=== PATIENT | female | born 1940 | race Caucasian/White ===

== ENCOUNTER → 2018-06-04 14:34 | Outpatient (CLI) | payer MEDICARE, SELFPAY ==
[2018-06-04 15:57] LABS: Erythrocyte Sedimentation Rate 9 mm/hr (0-30)
[2018-06-04 16:16] LABS: ALB/GLOB Ratio 1.1 RATIO (0.9-2.4); AST(SGOT) 14 U/L (15-37); Alanine Aminotransfer ALT/SGPT 17 U/L (13-56); Albumin, Serum 3.7 g/dL (3.2-5.0); Alkaline Phosphatase 125 U/L (45-117); Anion Gap 9 (5-15); BUN 8 mg/dL (7-18); BUN/Creat Ratio 12.4 RATIO (10-20); Calcium,Total 8.7 mg/dL (8.5-10.1); Chloride 97 mmol/L (98-107); Cholesterol 205 mg/dL (200); Creatinine, Serum 0.64 mg/dL (0.55-1.02); EST Glomerular Filtration Rate 95 mL/min (>60); Est Glom Filt Rate - Afr Amer 115 mL/min (>60); Globulin 3.3 g/dL (2.2-4.2); Glucose 88 mg/dL (74-106); High Density Lipoprotein 86 mg/dL; Potassium 3.2 mmol/L (3.5-5.1); Sodium Level 131 mmol/L (136-145); Triglycerides 112 mg/dL; Very Low Density Lipoprotein 22 mg/dL (5-40)
[2018-06-05 09:00] LABS: Vitamin B12 448 pg/mL (211-911); Vitamin D,25 Hydroxy 27.6 ng/mL (29.95-100.01)
== END ==
PROVIDERS: Family Provider Family Medicine; PCP Family Medicine; Visit Provider Family Medicine
DX: G40.909 Epilepsy, unspecified, not intractable, without status epilepticus (principal); E78.00 Pure hypercholesterolemia, unspecified; M81.0 Age-related osteoporosis without current pathological fracture; F03.90 Unspecified dementia, unspecified severity, without behavioral disturbance, psychotic disturbance, mood disturbance, and anxiety
CPT/HCPCS: 36415; 80053; 80061; 80184; 82306; 82607; 84443; 85652

== ENCOUNTER → 2018-06-19 10:16 | Outpatient (CLI) | payer MEDICARE, SELFPAY ==
[2018-06-19 14:32] LABS: Osmolality, Serum 279 mOsm/KG (280-301)
[2018-06-19 15:02] LABS: Urine Sodium 13 mmol/L (Not Establ.)
[2018-06-19 15:18] LABS: Osmolality, Urine 251 mOsm/KG
== END ==
PROVIDERS: Family Provider Family Medicine; PCP Family Medicine; Visit Provider Family Medicine
DX: E87.1 Hypo-osmolality and hyponatremia (principal)
CPT/HCPCS: 36415; 83930; 83935; 84300

== ENCOUNTER → 2018-06-24 14:35 | Outpatient (CLI) | payer MEDICARE, SELFPAY ==
--- NOTE | 2018-06-24 14:39 | CT_ITS ---
STUDY: CT BRAIN WITHOUT CONTRAST REASON FOR EXAM: Female, 77 years old. Dementia nonverbal since Sunday RADIATION DOSAGE (If Supplied By Facility): CTDIvol = ( 44.99 ) mGy, DLP = ( 745.49 ) mGycm TECHNIQUE: Transaxial CT imaging of the brain was performed without administration of intravenous contrast material. Individualized dose optimization techniques were used for this CT. COMPARISON: None. FINDINGS: Normal soft tissue structures. Normal calvarium. There is mild cerebral atrophy with widening of the extra-axial spaces and ventricular dilatation. There are areas of decreased attenuation within the white matter tracts of the supratentorial brain, consistent with microvascular disease changes. There is low-attenuation within the left side basal ganglia both within the israel of the left internal capsule as well as within the left thalamic region. Normal brainstem. There is mild cerebellar atrophy. There is no intracranial hemorrhage. There are no findings of an acute ischemic infarction. There is opacification of the left maxillary sinus. There is calcification of the bilateral cavernous carotid arteries. CT/Brain/Head without Contrast IMPRESSION: Atrophy. There are confluent deep white matter chronic ischemic change. 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 Recommend consideration of follow-up MRI is appropriate. Atherosclerotic disease of the carotid arteries. Severe left maxillary sinusitis. Electronically Signed: Cindy Ramirez MD at 15:58 EDT Tel , Service support ,
== END ==
PROVIDERS: Family Provider Family Medicine; PCP Family Medicine; Visit Provider Family Medicine
DX: F03.90 Unspecified dementia, unspecified severity, without behavioral disturbance, psychotic disturbance, mood disturbance, and anxiety (principal)
CPT/HCPCS: 70450

== ENCOUNTER 2018-06-27 10:38 | Emergency (ER) | payer MEDICARE, SELFPAY ==
[2018-06-27 10:39] VITALS: BP 120/76; PULSE 87; RESP 17; TEMP 36.1; O2SAT 98; BMI 21.9
--- NOTE | 2018-06-27 11:05 | EKG12_ITS ---
Test Reason : NEURO Blood Pressure : / mmHG Vent. Rate : 079 BPM Atrial Rate : 079 BPM P-R Int : 154 ms QRS Dur : 076 ms QT Int : 402 ms P-R-T Axes : 029 -30 035 degrees QTc Int : 460 ms Normal sinus rhythm Left axis deviation Moderate voltage criteria for LVH, may be normal variant Abnormal ECG Confirmed by CARLOS DENSON, VIKKI ([id number]), film and video editor TALIB HOLDEN ([id number]) on 07/01/2018 3:03:01 PM Referred By: Emerson Banuelos Confirmed By:VIKKI GONZALEZ MD
--- NOTE | 2018-06-27 11:05 | CT_ITS ---
STUDY: CT BRAIN WITHOUT CONTRAST REASON FOR EXAM: Female, 77 years old. Confusion. RADIATION DOSAGE (If Supplied By Facility): CTDIvol = ( 44.99 ) mGy, DLP = ( 745.49 ) mGycm TECHNIQUE: Transaxial CT imaging of the brain was performed without administration of intravenous contrast material. Individualized dose optimization techniques were used for this CT. COMPARISON: Comparison is made with prior study dated June 24, 2018. FINDINGS: Normal soft tissue structures. Normal calvarium. There is mild cerebral atrophy with widening of the extra-axial spaces and ventricular dilatation. There are areas of decreased attenuation within the white matter tracts of the supratentorial brain, consistent with microvascular disease changes. Stable 1.1 cm x 0.8 cm hypolucency in the left basal ganglion. Stable 1 cm lucency in the left thalamus. Normal brainstem. There is mild cerebellar atrophy. There is no intracranial hemorrhage. There are no findings of an acute ischemic infarction. Atherosclerotic calcification of the cavernous portions of the internal carotid arteries bilaterally. Opacification of the left maxillary sinus. Mucosal thickening of the left ethmoid sinus. CT/Brain/Head without Contrast IMPRESSION: Chronic involutional changes of the brain. Stable hypodensity in the left basal ganglion and left thalamus. Electronically Signed: Lul Tejada MD at 12:17 EDT Tel [phone], Service support ,
--- NOTE | 2018-06-27 11:05 | RAD_ITS ---
STUDY: X-RAY CHEST REASON FOR EXAM: Female, 77 years old. Possible CVA. TECHNIQUE: Single AP portable view of the chest. COMPARISON: None. FINDINGS: EKG electrodes are seen. Hyperinflation. Scattered calcified granulomas. No acute abnormality is seen. There is no demonstrated pleural abnormality. Normal size heart. Normal mediastinum and brady. Normal visualized pulmonary arteries. There is atherosclerotic calcification of the aortic arch with tortuosity. There are diffuse degenerative changes of the visualized thoracic spine. There is degenerative osteoarthritis of the bilateral shoulders. There is no demonstrated abnormality of the visualized soft tissue structures of the upper abdomen. RAD/Chest 1 View IMPRESSION: Hyperinflation. Scattered calcified granulomas. Electronically Signed: Lul Tejada MD at 11:24 EDT Tel [phone], Service support ,
[2018-06-27 11:09] VITALS: BP 131/80; PULSE 83; RESP 18; O2SAT 98
[2018-06-27 11:34] LABS: Absolute Lymphocyte Count 0.96 X10^3/ul (0.83-4.51); Absolute Neutrophil Count 6.3 X10^3/uL (2.0-7.7); Basophil# 0.01 X10^3/uL; Basophil% 0.1 % (0-1); Eosinophil# 0.09 X10^3/uL; Eosinophils% 1.1 % (0-5); Hematocrit 42.2 % (37-47); Hemoglobin 13.9 g/dl (12.0-15.0); Lymphocyte # 0.96 X10^3/ul (4.0); Lymphocyte % 12.2 % (19-41); Mean Corp Hgb Conc 32.9 g/gl (32-36); Mean Corpuscular Hgb 30.3 pg (27.0-32.0); Mean Corpuscular Volume 92.1 fL (81-99); Mean Platelet Vol. 9.2 fl (6.2-12.0); Monocyte# 0.52 X10^3/uL; Monocyte% 6.6 % (0-10); Neutrophil % 79.9 % (47-70); Platelet Count 261 K/mm3 (150-450); RBC Distribution Width CV 13.5 % (11.6-14.6); RBC Distribution Width SD 45.3 fl (35.1-43.9); Red Blood Count 4.58 M/mm3 (4.2-5.4); White Blood Count 7.9 K/mm3 (4.4-11.0)
[2018-06-27 11:36] LABS: POSITIVE COUNT NO; POSITIVE DIFFERENTIAL NO; POSITIVE MORPHOLOGY NO
[2018-06-27 11:45] LABS: Prothrombin Time (Protime)PT. 13.1 SECONDS (11.7-14.9)
[2018-06-27 11:46] LABS: Partial Thromboplast Time 29.2 Seconds (24.1-36.2)
[2018-06-27 11:53] LABS: Anion Gap 11 (5-15); BUN 9 mg/dL (7-18); BUN/Creat Ratio 12.9 RATIO (10-20); Calcium,Total 8.8 mg/dL (8.5-10.1); Chloride 102 mmol/L (98-107); EST Glomerular Filtration Rate 87 mL/min (>60); Est Glom Filt Rate - Afr Amer 105 mL/min (>60); Estimated Creatinine Clearance 47.27 ml/min; Glucose 104 mg/dL (74-106); Potassium 3.8 mmol/L (3.5-5.1); Sodium Level 140 mmol/L (136-145)
--- NOTE | 2018-06-27 12:02 | ED.VISSUMM ---
- ER Visit Summary Date of Service: 06/27/18 Chief Complaint: Possible stroke History of Present Illness: The patient is a 77 F who presents with difficulty speaking for the past 5 days. states he went to [employer] on Sunday and when he came home the patient was nonverbal. Patient was only nodding her head or giving gestures as answers to his questions. Later the patient began giving one-word answers. Patient has a history of Parkinson's disease and dementia. states that the patient sits on the front porch and stares at the calendar. also states the patient has been drinking a lot of water recently. Patient had an outpatient CT scan done Sunday which did not show any acute abnormality. Physical Examination: Vital signs are stable. Patient is afebrile. Patient is in no acute distress. Cranial nerves II through XII are intact. Strength is 5/5 bilateral in the upper and lower extremities. There are no sensory deficits noted. Heart was regular rate and rhythm. Lungs are clear and equal bilateral. There is good respiratory effort noted. Abdomen is soft. Bowel sounds are normal. There is no apparent tenderness. The remaining physical exam is within normal limits. Test Results: EKG showed normal sinus rhythm with a rate of 79. There are no acute ST or T-wave changes. CBC and metabolic profile were within normal limits. Troponin was normal. CT scan of the brain showed chronic changes but no acute infarct or bleed. Chest x-ray shows hyperinflation but no acute process. Urinalysis shows evidence of a urinary tract infection. Emergency Department Course and Treatment: Patient was given a dose of Bactrim here. Patient was given a prescription for Bactrim. Case was discussed with her primary care physician who agrees with the treatment and will follow-up with the patient in the office next week. Family understands and is agreeable with the plan. All questions were answered. Disposition: Discharge home Impression: 1. Urinary tract infection 2. Dementia 3. History of Parkinson's disease This note was generated with [employer] dictation software. It may contain incorrect words, spelling, and punctuation that were not noted in review of the chart prior to signing ED Disposition - Plan for ED Patient: Disposition: Home or Assisted Living Chief Complaint: Neuro S/Sx Diagnosis: Urinary tract infection Instructions: ED UTI Cystitis Female Prescriptions: Smz/Tmp Ds [Bactrim Ds] 1 tab PO BID #6 tab Referrals: Emerson Banuelos MD [Primary Care Provider] -
--- NOTE | 2018-06-27 12:02 | CM.ED ---
Case management referred for advance directives planning. Reviewed advance directives and answered questions for patient and family. All present state understanding. Two copies of advance directives provided: one for patient and one for her spouse. I informed patient and family to let staff know if they have any questions or need witness signatures for documents. Patient is documented to be alert and oriented at this time. She states no questions at this time.
--- NOTE | 2018-06-27 12:05 | ED.DCSUM_ITS ---
- ER Visit Summary Date of Service: 06/27/18 Chief Complaint: Possible stroke History of Present Illness: The patient is a 77 F who presents with difficulty speaking for the past 5 days. states he went to [employer] on Sunday and when he came home the patient was nonverbal. Patient was only nodding her head or giving gestures as answers to his questions. Later the patient began giving one-word answers. Patient has a history of Parkinson's disease and dementia. states that the patient sits on the front porch and stares at the calendar. also states the patient has been drinking a lot of water recently. Patient had an outpatient CT scan done Sunday which did not show any acute abnormality. Physical Examination: Vital signs are stable. Patient is afebrile. Patient is in no acute distress. Cranial nerves II through XII are intact. Strength is 5/ 5 bilateral in the upper and lower extremities. There are no sensory deficits noted. Heart was regular rate and rhythm. Lungs are clear and equal bilateral. There is good respiratory effort noted. Abdomen is soft. Bowel sounds are normal. There is no apparent tenderness. The remaining physical exam is within normal limits. Test Results: EKG showed normal sinus rhythm with a rate of 79. There are no acute ST or T-wave changes. CBC and metabolic profile were within normal limits. Troponin was normal. CT scan of the brain showed chronic changes but no acute infarct or bleed. Chest x-ray shows hyperinflation but no acute process. Urinalysis shows evidence of a urinary tract infection. Emergency Department Course and Treatment: Patient was given a dose of Bactrim here. Patient was given a prescription for Bactrim. Case was discussed with her primary care physician who agrees with the treatment and will follow-up with the patient in the office next week. Family understands and is agreeable with the plan. All questions were answered. Disposition: Discharge home Impression: 1. Urinary tract infection 2. Dementia 3. History of Parkinson's disease This note was generated with [employer] dictation software. It may contain incorrect words, spelling, and punctuation that were not noted in review of the chart prior to signing ED Disposition - Plan for ED Patient: Disposition: Home or Assisted Living Chief Complaint: Neuro S/Sx Diagnosis: Urinary tract infection Instructions: ED UTI Cystitis Female Prescriptions: Smz/Tmp Ds [Bactrim Ds] 1 tab PO BID #6 tab Referrals: Emerson Banuelos MD [Primary Care Provider] -
[2018-06-27 13:09] VITALS: O2SAT 98
[2018-06-27 13:10] VITALS: BP 143/79; PULSE 77; RESP 16; O2SAT 98
[2018-06-27 14:04] LABS: Mucous, Urine 0 SEEN /hpf (<or=2+); Red Blood Cells-Urine 0 SEEN /hpf (0-5)
[2018-06-27 14:22] LABS: Color, Urine Yellow (Yellow); Glucose, Dipstick Normal (Normal); Ketone-Dipstick Negative (Negative); Leukocyte Esterase-Dipstick 500 /ul (Negative); Nitrite-Dipstick Positive (Negative); Occult Blood-Urine 25 /ul (Negative); Protein-Dipstick Negative (Negative); Urine Bilirubin Dipstick Negative (Negative); Urine Clarity Sl. Cloudy (Clear); Urine Urobilinogen Normal (Normal)
[2018-06-27 14:50] LABS: Bacteria 3+ /hpf (None Seen); White Blood Cells 25-50 SEEN /hpf (0-5)
--- NOTE | 2018-06-27 14:50 | CM.ED ---
Patient's family requested case management for questions and as witnesses for advance directives. neighborhood worker, Cecilio Moreno, accompanied me. Family's questions answered at this time. Patient is alert and oriented to self only at this time. She was unable to tell me the month or where she was. Patient's family states this is normal for her after she's been awake a while. I explained that we are unable to witness her advance directives at this time. Patient's family states understanding. They also state understanding on how to complete these from home, if needed. Patient's spouse did complete his own advance directives. These were scanned into his electronic chart.
[2018-06-27 14:51] LABS: Squamous Epithelial Cells - UA 0-5 SEEN /hpf (5-10)
[2018-06-27 15:24] VITALS: BP 123/65; PULSE 82; RESP 16; O2SAT 98
[2018-06-27 15:25] VITALS: BP 123/85; PULSE 81; RESP 16; O2SAT 98
[2018-06-27] MEDS: Smz/Tmp Ds Tablet 1 TABLET PO (15:26)
== END 2018-06-27 15:37 | disposition home or self-care (01) ==
PROVIDERS: Emergency Provider Emergency Medicine; Family Provider Family Medicine; PCP Family Medicine
DX: N39.0 Urinary tract infection, site not specified (principal); R32 Unspecified urinary incontinence; G20 Parkinson's disease; F02.80 Dementia in other diseases classified elsewhere, unspecified severity, without behavioral disturbance, psychotic disturbance, mood disturbance, and anxiety; R56.9 Unspecified convulsions; Z79.899 Other long term (current) drug therapy
CPT/HCPCS: 70450; 71045; 80048; 81001; 84484; 85025; 85610; 85730; 93005; 99285; A4216

== ENCOUNTER → 2018-07-18 12:18 | Outpatient (CLI) | payer MEDICARE, SELFPAY ==
--- NOTE | 2018-07-18 12:33 | MRI_ITS ---
STUDY: MRI BRAIN WITH AND WITHOUT CONTRAST REASON FOR EXAM: Female, 78 years old. CVA TECHNIQUE: Standardized multiplanar fat and water weighted pulse sequences were obtained. 6 ml of Gadavist contrast material was administered intravenously for the contrast portion of the examination. COMPARISON: CT 06/27/2018 FINDINGS: Normal size of the ventricles and extra-axial spaces for the patient's age. There are multiple white matter hyperintensities, distributed throughout the deep white matter tracts of the cerebral hemispheres, consistent with moderate chronic white matter ischemic changes. Subacute infarct in the left basal ganglia. Punctate acute infarct in the right periatrial white matter. Remote infarcts in the bilateral thalami. There is no extra-axial fluid accumulation. Normal flow voids within the major intracranial circulation suggesting patency by spin echo criteria. Normal venous enhancement. There is no enhancing intra-axial or extra-axial abnormality. Normal sella turcica, pituitary gland, infundibular stalk, optic chiasm and hypothalamus. Normal tectal plate and pineal gland. Microangiopathic changes in the guillermo. Normal cerebellum. Normal basal cisterns. Normal bilateral temporal bones. Normal bilateral internal auditory canals. Bilateral lens replacements. Left maxillary sinus disease. Normal calvarium and skull base. Normal visualized soft tissue structures. Normal visualized upper cervical spine. MRI/Brain W/WO Contrast IMPRESSION: Subacute infarct in the left basal ganglia. Punctate acute infarct in the right periatrial white matter. Remote infarcts in the bilateral thalami. No evidence of acute intracranial hemorrhage. Electronically Signed: Kev Hahn MD at 2:23 EDT Tel , Service support ,
== END ==
PROVIDERS: Family Provider Family Medicine; PCP Family Medicine; Referring Provider Family Medicine; Visit Provider Family Medicine
DX: Z86.73 Personal history of transient ischemic attack (TIA), and cerebral infarction without residual deficits (principal)
CPT/HCPCS: 70553; A9585

== ENCOUNTER → 2018-07-23 17:58 | Outpatient (CLI) | payer MEDICARE, SELFPAY | PROVIDERS: Family Provider Family Medicine; PCP Family Medicine; Referring Provider Family Medicine; Visit Provider Family Medicine | DX: R32 Unspecified urinary incontinence (principal) | CPT/HCPCS: 87086; 87088; 87186 ==

== ENCOUNTER → 2018-07-24 12:36 | Outpatient (CLI) | payer MEDICARE, SELFPAY ==
--- NOTE | 2018-07-24 12:42 | ECHOD_ITS ---
Reason For Study: CVA Procedure This was a 2D Doppler, Color Flow transthoracic echocardiogram. The study was technically difficult. Exam performed in department. Left Ventricle Normal size and thickness. The estimated ejection fraction is 65 %. Stage 1 diastolic dysfunction. No regional wall motion abnormalities noted. Right Ventricle Normal size and thickness. Normal systolic function. Atria Normal left atrium. Normal right atrium. Normal atrial septum. Mitral Valve The mitral valve is structurally normal. No prolapse or stenosis seen. Tricuspid Valve Normal tricuspid valve. Trivial tricuspid valve insufficiency. Right ventricular systolic pressure estimated to be 29 mmHg. Aortic Valve Trisinus/trileaflet aortic valve. Moderate diffuse aortic valve thickening. Mild aortic stenosis. Trivial aortic valve insufficiency. Pulmonic Valve Normal pulmonic valve. Trivial pulmonic valve insufficiency. Great Vessels Normal aortic root. Pericardium/Pleural No pericardial effusion. Medication 22 gauge I.V. with prn adaptor inserted into right arm. Performed a rapid injection of agitated mix of 9 cc saline and 1cc air to assess for atrial septal defect. MMode/2D Measurements & Calculations LVIDd: 3.9 cm IVSd: 1.1 cm Ao root diam: 3.7 cm LVIDs: 2.4 cm LVPWd: 1.0 cm RVDd: 2.7 cm FS: 37.7 % LAV(MOD-bp): 39.2 ml LA A4 area: 15.1 cm2 RA A4 area: 8.5 cm2 LAV(MOD-sp2): 43.5 ml LAV(MOD-sp4): 35.4 ml Doppler Measurements & Calculations MV E max jose: 45.9 cm/sec Lat Peak E' Jose: 8.2 cm/sec Med Peak E' Jose: 4.9 cm/sec MV A max jose: 102.6 cm/sec E/E' lat: 5.6 E/E' med: 9.3 MV E/A: 0.45 Ao V2 max: 179.7 cm/sec AI max jose: 445.4 cm/sec LV V1 max: 156.5 cm/sec Ao max P.3 mmHg AI max P.4 mmHg LV V1 max P.8 mmHg Ao V2 mean: 129.3 cm/sec AI dec slope: 224.7 cm/sec2 LV V1 mean P.7 mmHg Ao mean P.2 mmHg AI P1/2t: 580.6 msec LV V1 mean: 114.8 cm/sec Ao V2 VTI: 29.1 cm LV V1 VTI: 25.2 cm PA V2 max: 92.5 cm/sec TR max jose: 235.0 cm/sec TR max P.1 mmHg Interpretation Summary The estimated ejection fraction is 65 %. Stage 1 diastolic dysfunction. Trivial tricuspid valve insufficiency. Right ventricular systolic pressure estimated to be 29 mmHg. Mild aortic stenosis. Trivial aortic valve insufficiency. There is no comparison study available. Ordering Physician: Luiz Banuelos Referring Physician: Luiz Banuelos Performed By: Claribel Slade, SALVATORE, RVT
--- NOTE | 2018-07-24 12:42 | CDU_ITS ---
Reason For Study: CVA Rt. Velocities/BP Lt. Velocities/BP Prox CCA 47/9 cm/sec. Prox CCA 46/7 cm/sec. Mid CCA 45/9 cm/sec. Mid CCA 52/9 cm/sec. Dist CCA 42/9 cm/sec. Dist CCA 44/8 cm/sec. Prox ICA 30/5 cm/sec. Prox ICA 45/9 cm/sec. Mid ICA 39/7 cm/sec. Mid ICA 35/11 cm/sec. Dist ICA 47/8 cm/sec. Dist ICA 47/11 cm/sec. Rt. ICA/CCA = 1.05. Lt. ICA/CCA = .9. Prox ECA 86/7 cm/sec. Prox ECA 71/6 cm/sec. Rt. Vert. 42/7 cm/sec. Lt. Vert. 35/7 cm/sec. Right Extracranial There is heterogeneous, irregular atherosclerotic plaque noted in the right common carotid artery. There is heterogeneous, irregular atherosclerotic plaque noted in the right internal carotid artery. There is heterogeneous, irregular atherosclerotic plaque noted in the right external carotid artery. Antegrade flow is noted in the right vertebral artery. There is heterogeneous, irregular atherosclerotic plaque noted in the right bulb. Left Extracranial There is homogeneous, smooth atherosclerotic plaque noted in the left common carotid artery. There is heterogeneous, irregular atherosclerotic plaque noted in the left internal carotid artery. There is heterogeneous, irregular atherosclerotic plaque noted in the left external carotid artery. Antegrade flow is noted in the left vertebral artery. There is heterogeneous, irregular atherosclerotic plaque noted in the left bulb. Procedure Carotid Duplex 22360. Exam performed in department. Interpretation Summary Mild (<50%) stenosis right extracranial internal carotid. Mild (<50%) stenosis left extracranial internal carotid. Flow within the vertebral arteries is antegrade bilaterally. Heterogeneous, irregular atherosclerotic plaque is noted in the carotid bulbs bilaterally, which does not appear to be hemodynamically significant. Ordering Physician: Luiz Banuelos Referring Physician: uLiz Banuelos Performed By: Juanita Snow, SALVATORE, RVT
== END ==
PROVIDERS: Family Provider Family Medicine; PCP Family Medicine; Referring Provider Family Medicine; Visit Provider Family Medicine
DX: Z86.73 Personal history of transient ischemic attack (TIA), and cerebral infarction without residual deficits (principal)
CPT/HCPCS: 93306; 93880; A4216

== ENCOUNTER → 2018-07-30 11:33 | Outpatient (CLI) | payer MEDICARE, SELFPAY ==
[2018-07-30 14:12] LABS: Anion Gap 9 (5-15); BUN 9 mg/dL (7-18); BUN/Creat Ratio 14.2 RATIO (10-20); Calcium,Total 8.7 mg/dL (8.5-10.1); Chloride 103 mmol/L (98-107); Creatinine, Serum 0.64 mg/dL (0.55-1.02); EST Glomerular Filtration Rate 97 mL/min (>60); Est Glom Filt Rate - Afr Amer 117 mL/min (>60); Glucose 99 mg/dL (74-106); Potassium 3.8 mmol/L (3.5-5.1); Sodium Level 138 mmol/L (136-145)
== END ==
PROVIDERS: Family Provider Family Medicine; PCP Family Medicine; Visit Provider Family Medicine
DX: E87.1 Hypo-osmolality and hyponatremia (principal)
CPT/HCPCS: 36415; 80048

== ENCOUNTER → 2018-12-04 10:22 | Outpatient (CLI) | payer MEDICARE, SELFPAY ==
[2018-12-04 10:27] LABS: Mucous, Urine 0 SEEN /hpf (<or=2+); Red Blood Cells-Urine 0 SEEN /hpf (0-5)
[2018-12-04 12:15] LABS: Color, Urine Yellow (Yellow); Glucose, Dipstick Normal (Normal); Ketone-Dipstick 5 mg/dl (Negative); Leukocyte Esterase-Dipstick 500 /ul (Negative); Nitrite-Dipstick Positive (Negative); Occult Blood-Urine 50 /ul (Negative); Protein-Dipstick 30 mg/dl (Negative); Specific Gravity, Urine 1.025 (1.002-1.030); Urine Bilirubin Dipstick Negative (Negative); Urine Clarity Cloudy (Clear); Urine Urobilinogen Normal (Normal)
[2018-12-04 12:30] LABS: White Blood Cells >100 SEEN /hpf (0-5)
[2018-12-04 12:32] LABS: Bacteria 3+ /hpf (None Seen)
[2018-12-04 12:33] LABS: Calcium Oxalate Crystals Ur RARE /hpf (<or=2+)
[2018-12-04 12:37] LABS: Squamous Epithelial Cells - UA 0-5 SEEN /hpf (5-10); Transitional Epithelial - Ur 0-5 SEEN /hpf (0-5)
== END ==
LOC: MFPLAB 10:22 → LABSPEC 10:26
PROVIDERS: Family Provider Family Medicine; PCP Family Medicine; Visit Provider Family Medicine
DX: R35.0 Frequency of micturition (principal)
CPT/HCPCS: 81001; 87086; 87088; 87186

== ENCOUNTER → 2019-03-06 11:47 | Outpatient (CLI) | payer MEDICARE, SELFPAY ==
[2019-03-06 14:10] LABS: Absolute Lymphocyte Count 1.03 X10^3/ul (0.83-4.51); Absolute Neutrophil Count 5.8 X10^3/uL (2.0-7.7); Basophil# 0.02 X10^3/uL; Basophil% 0.3 % (0-1); Eosinophil# 0.05 X10^3/uL; Eosinophils% 0.7 % (0-5); Hemoglobin 14.5 g/dl (12.0-15.0); Lymphocyte # 1.03 X10^3/ul (4.0); Lymphocyte % 13.8 % (19-41); Mean Corp Hgb Conc 33.7 g/gl (32-36); Mean Corpuscular Volume 92.1 fL (81-99); Mean Platelet Vol. 9.9 fl (6.2-12.0); Monocyte# 0.57 X10^3/uL; Monocyte% 7.6 % (0-10); Neutrophil # 5.79 X10^3/uL (2.7-7.7); Neutrophil % 77.3 % (47-70); Platelet Count 288 K/mm3 (150-450); RBC Distribution Width CV 14.4 % (11.6-14.6); RBC Distribution Width SD 47.8 fl (35.1-43.9); Red Blood Count 4.67 M/mm3 (4.2-5.4); White Blood Count 7.5 K/mm3 (4.4-11.0)
[2019-03-06 14:11] LABS: POSITIVE COUNT NO; POSITIVE DIFFERENTIAL NO; POSITIVE MORPHOLOGY NO
[2019-03-06 14:31] LABS: ALB/GLOB Ratio 1.4 RATIO (0.9-2.4); AST(SGOT) 5 U/L (15-37); Alanine Aminotransfer ALT/SGPT 7 U/L (13-56); Albumin, Serum 3.9 g/dL (3.2-5.0); Alkaline Phosphatase 120 U/L (45-117); Anion Gap 8 (5-15); BUN 9 mg/dL (7-18); BUN/Creat Ratio 15.6 RATIO (10-20); Calcium,Total 9.2 mg/dL (8.5-10.1); Chloride 106 mmol/L (98-107); Creatinine, Serum 0.58 mg/dL (0.55-1.02); EST Glomerular Filtration Rate 108 mL/min (>60); Est Glom Filt Rate - Afr Amer 131 mL/min (>60); Globulin 2.7 g/dL (2.2-4.2); Glucose 97 mg/dL (74-106); Potassium 3.9 mmol/L (3.5-5.1); Protein, Total 6.6 g/dL (6.4-8.2); Sodium Level 138 mmol/L (136-145); Thyroid Stim Hormone (TSH) 1.59 uIU/mL (0.358-3.74)
== END ==
PROVIDERS: Family Provider Family Medicine; PCP Family Medicine; Referring Provider Family Medicine; Visit Provider Family Medicine
DX: R53.1 Weakness (principal)
CPT/HCPCS: 36415; 80053; 84443; 85025

== ENCOUNTER 2019-06-27 14:31 | Observation (INO) | payer MEDICARE, SELFPAY ==
[2019-06-27 14:32] VITALS: BP 100/66; PULSE 69; RESP 17; TEMP 36.7; O2SAT 97; BMI 24.5
--- NOTE | 2019-06-27 15:34 | EKG12_ITS ---
Test Reason : Blood Pressure : / mmHG Vent. Rate : 068 BPM Atrial Rate : 068 BPM P-R Int : 176 ms QRS Dur : 084 ms QT Int : 436 ms P-R-T Axes : 034 -30 040 degrees QTc Int : 463 ms Normal sinus rhythm Left axis deviation Moderate voltage criteria for LVH, may be normal variant Abnormal ECG Confirmed by BLAYNE DENSON, EFRAÍN ([id number]), health editor TALIB HOLDEN ([id number]) on 07/01/2019 12:03:02 PM Referred By: Omari Hernandez Confirmed By:EMMIE CISNEROS MD
[2019-06-27] MEDS: 0.9% Normal Saline 1,000 ML 150 ML IV (16:28)
[2019-06-27 16:32] LABS: Absolute Lymphocyte Count 0.96 X10^3/uL (0.83-4.51); Absolute Neutrophil Count 5.7 X10^3/uL (2.0-7.7); Basophil# 0.03 X10^3/uL; Basophil% 0.4 % (0-1); Eosinophil# 0.09 X10^3/uL; Eosinophils% 1.2 % (0-5); Hematocrit 40.4 % (37-47); Hemoglobin 13.5 g/dL (12.0-15.0); Lymphocyte # 0.96 X10^3/ul (4.0); Lymphocyte % 13.2 % (19-41); Mean Corp Hgb Conc 33.4 g/dL (32-36); Mean Corpuscular Hgb 30.3 pg (27.0-32.0); Mean Corpuscular Volume 90.8 fL (81-99); Mean Platelet Vol. 10.7 fl (6.2-12.0); Monocyte# 0.54 X10^3/uL; Monocyte% 7.4 % (0-10); NRBC Flagged by Analyzer 0 % (0-5); Neutrophil # 5.65 X10^3/uL (2.7-7.7); Neutrophil % 77.5 % (47-70); Platelet Count 285 K/mm3 (150-450); RBC Distribution Width CV 12.7 % (11.6-14.6); RBC Distribution Width SD 41.4 fl (35.1-43.9); Red Blood Count 4.45 M/mm3 (4.2-5.4); White Blood Count 7.3 K/mm3 (4.4-11.0)
[2019-06-27 16:45] LABS: ALB/GLOB Ratio 1.2 RATIO (0.9-2.4); AST(SGOT) 4 U/L (15-37); Alanine Aminotransfer ALT/SGPT 7 U/L (13-56); Albumin, Serum 3.5 g/dL (3.2-5.0); Alkaline Phosphatase 109 U/L (45-117); Anion Gap 6 (5-15); BUN 7 mg/dL (7-18); BUN/Creat Ratio 12.4 RATIO (10-20); Calcium,Total 8.6 mg/dL (8.5-10.1); Chloride 103 mmol/L (98-107); Creatinine, Serum 0.56 mg/dL (0.55-1.02); EST Glomerular Filtration Rate 111 mL/min (>60); Est Glom Filt Rate - Afr Amer 134 mL/min (>60); Estimated Creatinine Clearance 36.12 ml/min; Glucose 91 mg/dL (74-106); Potassium 3.7 mmol/L (3.5-5.1); Protein, Total 6.5 g/dL (6.4-8.2); Sodium Level 137 mmol/L (136-145)
[2019-06-27 17:43] VITALS: BP 144/66; PULSE 64; RESP 16; O2SAT 100
[2019-06-27 17:47] LABS: Mucous, Urine 0 SEEN /hpf (<or=2+)
[2019-06-27 17:50] LABS: Color, Urine Yellow (Yellow); Glucose, Dipstick Normal (Normal); Ketone-Dipstick Negative (Negative); Leukocyte Esterase-Dipstick 500 /ul (Negative); Nitrite-Dipstick Positive (Negative); Occult Blood-Urine 10 /ul (Negative); Protein-Dipstick Negative (Negative); Urine Bilirubin Dipstick Negative (Negative); Urine Clarity Sl. Cloudy (Clear); Urine Urobilinogen Normal (Normal); Urine pH 6.5 (5.0 - 8.0)
[2019-06-27 18:07] LABS: Amorphous Sediment 1+ URATE; Bacteria 2+ /hpf (None Seen); Red Blood Cells-Urine 0-5 SEEN /hpf (0-5); Squamous Epithelial Cells - UA 0-5 SEEN /hpf (5-10); White Blood Cells 25-50 SEEN /hpf (0-5)
--- NOTE | 2019-06-27 18:12 | ED.VISSUMM ---
- ER Visit Summary Date of Service: 06/27/19 Chief Complaint: [Fatigue and increased sleep] History of Present Illness: The patient is a 78 F [present to the emergency department with symptoms for over 5 days. Family states the patient is not eating like normal. She is had some increased confusion this week. Patient did vomit x1, 6 days ago but none since that time.] Patient denies any chest pain or shortness of breath. She denies any abdominal pain. She denies any blood in her stool. She has history of Parkinson's and dementia. Physical Examination: [HEENT-PERRLA, EOMI. Cranial nerves II through XII grossly intact. TMs clear. Mucous membranes moist. No adenopathy. Cardiovascular-regular rate and rhythm without murmur or ectopy Lungs-clear to auscultation, chest wall stable without crepitus or subcu emphysema Abdomen-normoactive bowel sounds, soft, nontender, no rebound or rigidity, no peritoneal signs. Extremities-intact ?4, normal range of motion, normal pulses, atraumatic] Test Results: [EKG obtained showed a sinus rhythm with a ventricular rate of 68 bpm with no acute segment changes. CBC with differential showed a white count 7.3, hemoglobin 13.5, hematocrit 40, placed 285. Chemistries unremarkable. LFTs were normal. Troponin is less than 0.15. EKG shows sinus rhythm with a ventricular rate of 68 bpm with no acute segment changes. Urinalysis obtained showed 500 leukocyte esterase as well as positive nitrites and 25-50 WBCs. Patient had +2 bacteria.] Emergency Department Course and Treatment: [She was treated with normal saline and started on Rocephin 1 g IV. Urine cultures ordered.] Treatment Plan: [Admit for IV antibiotics and hydration. Patient did have one episode of her blood pressure dropping into the 80s while in the department. I will add a lactate level.] Disposition: [Admit] Impression: [UTI Generalized weakness] This note was generated with [employer] dictation software. It may contain incorrect words, spelling, and punctuation that were not noted in review of the chart prior to signing ED Disposition - Plan for ED Patient: Referrals: Emerson Banuelos MD [Primary Care Provider] -
[2019-06-27] MEDS: Ceftriaxone 1 GM/50 ML BAG IV (18:32)
[2019-06-27 19:00] VITALS: BP 133/84; PULSE 63; RESP 16; O2SAT 97
[2019-06-27 19:02] LABS: Lactic Acid 1.2 mmol/L (0.4-2.0)
[2019-06-27 19:31] VITALS: BP 133/84; PULSE 63; RESP 16; O2SAT 97
[2019-06-27 19:39] VITALS: BMI 22.5
--- NOTE | 2019-06-27 19:44 | PCM.HP.STD ---
Problem List (1) Acute encephalopathy Status: Acute (2) UTI Status: Acute (3) Parkinson's disease Status: Chronic (4) Epilepsy Status: Chronic (5) Dementia Status: Chronic History of Present Illness Date of Admission: 06/27/19 Chief Complaint: Change in mental status for about 1 week. The patient is a 78 year old F with multiple comorbidities as listed above was brought into ER by family for change in mental status for 1 week. Patient as per the patient's daughter and patient is confused, disoriented, lethargic and sleepy for about 1 week. Patient herself denies burning micturition, increased frequency urgency. Patient has history of epilepsy about 23 years ago and also dementia and is on multiple antipsychotic medications thiothixene and perphenazine. Work-up in the ER shows mild pyuria in UA, 25-50 cells, positive nitrite, positive LE. Rest of CBC and BMP are unremarkable. Vital signs are stable. [] Past Medical History Past Medical History (Chronic Problems): Chronic Problems Parkinson's disease (Chronic) Epilepsy (Chronic) Dementia (Chronic) Allergies propoxyphene HCl [From Darvon] Allergy (Verified 06/27/19 19:42) Unknown phenytoin sodium [From Dilantin] Adverse Reaction (Verified 06/27/19 19:42) tremors phenytoin sodium extended [From Dilantin] Adverse Reaction (Verified 06/27/19 19:42) tremors Home Medications: Ambulatory Orders Medication Instructions Recorded Phenobarbital 64.8 mg PO BID 06/27/18 Vit A/Vit C/Vit E/Zinc/Copper 1 cap PO DAILY 06/27/18 [Preservision Areds Softgel] Aspirin E.C. [Ecotrin] 81 mg PO DAILY@0800 06/27/19 Carbidopa/Levodopa [Carbidopa-Levo 2 tab PO BID 06/27/19 ER 50-200 Tab] Cholecalciferol (Vitamin D3) 1,000 unit PO DAILY 06/27/19 [Vitamin D3] Perphenazine 16 mg PO QHS 06/27/19 Thiothixene 20 mg PO DAILY 06/27/19 Surgical History: cataract, cholecystectomy, total hip arthroplasty Smoking Status: Never smoker - *Family History Maternal History Items: - - Patient has severe dementia and does not remember her family history. Review of Systems Constitutional: Denies: Chills, Fever, Weight Change HEENT: Reports: Difficulty Hearing Cardiovascular: Denies: Chest Pain, Palpitations Respiratory: Denies: Cough, Shortness of breath at rest, Sputum production Gastrointestinal: Denies: Abdominal Pain, Nausea, Vomiting Genitourinary: Reports: Incontinence. Denies: Dysuria, Frequency, Hematuria, Hesitancy Neurological: Reports: Balance problems, Incoordination Psychiatric: Reports: Anxiety, Depression. Denies: Homicidal Ideations, Suicidal Ideations Unable to obtain accurate/complete ROS d/t: Because the patient has history of dementia and Parkinson's disease. VTE Information - Inpt Only VTE Present on Admission: No VTE Mechan Device Prophylaxis: None VTE Pharm Prophylaxis ordered?: Yes Patient Problems: Active and Suspected Problems Acute encephalopathy (Acute) UTI (Acute) - Physical Exam General: Oriented x3, Cooperative, Lethargic, - - Mild forgetfulness and increased recall and registration time. HEENT: Atraumatic, PERRLA, EOMI, Normocephalic Oral: Dry Mucosa Neck: Supple, No JVD, Negative Carotid Bruits Lungs: Clear to auscultation, Normal air movement, No rhonchi, No wheeze, No rales Cardiovascular: Regular rate, Regular Rhythm, Normal S1, Normal S2, No murmurs Abdomen: Bowel Sounds Present, Soft, Non Tender, Non-Distended Extremities: No edema, Capillary Refill Less than 3 Seconds Skin: No rashes, No breakdown Musculoskeletal: No Tenderness to Palpation of Joints or Extremities, Arthritic Changes Neurological: Cranial nerves II-XII grossly intact, Deep Tendon Reflexes 2+/4 and Symmetrical, Neuro grossly intact Psych/Mental Status: Normal Affect, Appropriate Vital Signs Temp Pulse Resp BP Pulse Ox 98.1 F 63 16 133/84 H 97 06/27/19 14:32 06/27/19 19:31 06/27/19 19:31 06/27/19 19:31 06/27/19 19:31 Oxygen Delivery Method Room Air Weight: 130 lb Body Mass Index (BMI) 24.5 Finger Stick Blood Glucose 104 Intake and Output for Last 24 Hours 06/25/19 06/26/19 06/27/19 23:59 23:59 23:59 Intake Total 305 / 305 Balance 305 / 305 Laboratory Tests Past 24 Hrs 06/27/19 06/27/19 06/27/19 14:45 14:45 17:37 WBC 7.3 RBC 4.45 Hgb 13.5 Hct 40.4 MCV 90.8 MCH 30.3 MCHC 33.4 RDW Std Deviation 41.4 RDW Coeff of [place] 12.7 Plt Count 285 MPV 10.7 Immature Gran % (Auto) 0.300 Neut % (Auto) 77.5 H Lymph % (Auto) 13.2 L [place] % (Auto) 7.4 Eos % (Auto) 1.2 Baso % (Auto) 0.4 Absolute Neuts (auto) 5.7 Absolute Lymphs (auto) 0.96 Nucleated RBC % 0 Sodium 137 Potassium 3.7 Chloride 103 Carbon Dioxide 28.0 Anion Gap 6 BUN 7 Creatinine 0.56 Estim Creat Clear Calc 36.12 Est GFR (MDRD) Af Amer 134 Est GFR (MDRD) Non-Af 111 BUN/Creatinine Ratio 12.4 Glucose 91 Lactic Acid Calcium 8.6 Total Bilirubin 0.50 AST 4 L ALT 7 L Alkaline Phosphatase 109 Troponin I < 0.015 Total Protein 6.5 Albumin 3.5 Globulin 3.0 Albumin/Globulin Ratio 1.2 Urine Color Yellow Urine Clarity Sl. Cloudy Urine pH 6.5 Ur Specific [place] 1.010 Urine Protein Negative Urine Glucose (UA) Normal Urine Ketones Negative Urine Occult Blood 10 H Urine Nitrite Positive H Urine Bilirubin Negative Urine Urobilinogen Normal Ur Leukocyte Esterase 500 H Urine RBC 0-5 SEEN Urine WBC 25-50 SEEN Ur Squamous Epith Cells 0-5 SEEN Amorphous Sediment 1+ URATE Urine Bacteria 2+ Urine Mucus 0 SEEN 06/27/19 18:25 WBC RBC Hgb Hct MCV MCH MCHC RDW Std Deviation RDW Coeff of [place] Plt Count MPV Immature Gran % (Auto) Neut % (Auto) Lymph % (Auto) [place] % (Auto) Eos % (Auto) Baso % (Auto) Absolute Neuts (auto) Absolute Lymphs (auto) Nucleated RBC % Sodium Potassium Chloride Carbon Dioxide Anion Gap BUN Creatinine Estim Creat Clear Calc Est GFR (MDRD) Af Amer Est GFR (MDRD) Non-Af BUN/Creatinine Ratio Glucose Lactic Acid 1.2 Calcium Total Bilirubin AST ALT Alkaline Phosphatase Troponin I Total Protein Albumin Globulin Albumin/Globulin Ratio Urine Color Urine Clarity Urine pH Ur Specific [place] Urine Protein Urine Glucose (UA) Urine Ketones Urine Occult Blood Urine Nitrite Urine Bilirubin Urine Urobilinogen Ur Leukocyte Esterase Urine RBC Urine WBC Ur Squamous Epith Cells Amorphous Sediment Urine Bacteria Urine Mucus Assessment/Plan All Active Problems Acute encephalopathy (Acute) UTI (Acute) The patient is a 78 year old F with multiple comorbidities as listed above was brought into ER by family for change in mental status for 1 week. Patient as per the patient's daughter and patient is confused, disoriented, lethargic and sleepy for about 1 week. Patient herself denies burning micturition, increased frequency urgency. Patient has history of epilepsy about 23 years ago and also dementia and is on multiple antipsychotic medications thiothixene and perphenazine. Work-up in the ER shows mild pyuria in UA, 25-50 cells, positive nitrite, positive LE. Rest of CBC and BMP are unremarkable. Vital signs are stable. [] 1. Acute encephalopathy most probably metabolic/infectious encephalopathy: Patient is being admitted to MedSurg floor. Treat underlying cause. IV fluid normal saline to correct dehydration. On IV antibiotic as mentioned below. 2. Cystitis/UTI: Started on IV antibiotic Rocephin 1 g daily. Urine culture is pending. Bladder scan q. 4 hourly. If patient retains urine will need further kidney and bladder ultrasound. 3. Chronic comorbidities including dementia, epilepsy history: Patient is on perphenazine which is usually given for his schizophrenia/psychotic disorder: Unclear indication. Will hold perphenazine in view of altered mental status. On thiothixene, hold if patient is confused or disoriented. 4. Parkinson disease: on Sinemet. 5. DVT prophylaxis: On Lovenox 40 no subcut daily. Code Visit OBSV E&M: 59533 Initial observation care L3
[2019-06-27 19:46] VITALS: BMI 24.6
[2019-06-27 20:26] VITALS: BP 148/86; PULSE 63; RESP 14; TEMP 36.9; O2SAT 99
[2019-06-27 21:44] LABS: Magnesium 2.1 mg/dL (1.6-2.6)
[2019-06-27] MEDS: Enoxaparin 40 MG/0.4 ML Syringe SC (22:23)
[2019-06-27] MEDS: CARBIDOPA/LEVODOPA CR 50/200 Tablet PO (22:23)
[2019-06-27] MEDS: Phenobarbital 32.4 MG Tablet 64.8 MG PO (22:54)
[2019-06-28] MEDS: 0.9% Normal Saline 1,000 ML 100 ML IV (00:48)
[2019-06-28 02:14] VITALS: BP 134/83; PULSE 72; RESP 18; TEMP 36.8; O2SAT 97
[2019-06-28 08:34] LABS: Thyroid Stim Hormone (TSH) 1.29 uIU/mL (0.358-3.74)
--- NOTE | 2019-06-28 09:17 | PCM.PROGNOTE ---
Patient Problems: Active and Suspected Problems Acute encephalopathy (Acute) UTI (Acute) Subjective: Day #2 Rocephin The patient is a 78-year-old female with Parkinson's disease, epilepsy and dementia who was brought to the emergency room at [facility] on 06/27/2019 with complaint of change in mental status over the preceding week. Per the family she was confused, disoriented and lethargic for approximately 1 week. She is on multiple psychiatric medications. Vital signs at presentation to the emergency department were temperature 98.1, pulse rate 69, blood pressure 100/66, respiratory rate 17 and she was 97 to 100% saturated on room air. CBC was unremarkable with the exception of an increased neutrophil count of 77.5%. White blood cell count was 7.3. BMP was unremarkable. Lactic acid was normal at 1.2. LFTs were unremarkable and the troponin was less than 0.015. A urine clean-catch was ordered on this demented 78-year-old female with confusion, disorientation on multiple psych meds. This showed 25-50 white blood cells per high-power field with 2+ bacteria. Was nitrite positive. Urine was sent for culture. No blood cultures were sent. He was admitted to the hospital and placed on Rocephin 1 g IV daily. All events of the past 24 hours have been reviewed. All labs, cultures and radiology has been reviewed. She has been afebrile since admission. Vital signs are stable. Poor oral intake. TSH is normal. Denies pain. Denies dysuria. She is oriented to person only. Her granddaughter is in the room and provides information. Saima is mostly in a wheelchair at home and requires assistance to get to and from the wheelchair. they take her to the BR every hour to help prevent accidents. She has been incontinent of stool the past week which is unusual for her. she consistently recognizes her but, not others. Had some problems swallowing cereal recently. appetite has been decreased recently. She lives at home at home and is cared for by her and daughters and grandchildren. - Physical Exam General: Alert, Cooperative, Confused - oriented X 1 only, - - Able to follow simple commands HEENT: Atraumatic, PERRLA, EOMI, Normocephalic, - - she has a decreased blink Oral: No Gingival or Mucosal Lesions/ Ulcerations, Dry Mucosa Neck: Supple, No JVD, No Nodes, Trachea Midline Lungs: Clear to auscultation - anterior, - - Not tachypneic, appears to be in no respiratory distress, able to take a deep breath when I asked her to. Cardiovascular: Regular rate, Regular Rhythm, Normal S1 - S1 is widely split., Normal S2, No murmurs - EKG shows normal sinus rhythm with left axis deviation and no suspicious ST or T wave changes., No rub noted, No Gallop, - - Occasional ectopic beat Abdomen: Bowel Sounds Present, Soft, Non Tender, Non-Distended, - - no guarding with palpation and denies pain when I palpate her abdomen Extremities: No clubbing, No cyanosis, No edema, Peripheral Pulses Normal Skin: No rashes Neurological: Cranial nerves II-XII grossly intact, - - no focal neurologic deficits Psych/Mental Status: Flat Affect, - - very little facial expression, smiles at me occasionally, decreased blink, one word answers to questions Vital Signs Temp Pulse Resp BP Pulse Ox 98.3 F 72 18 134/83 H 97 06/28/19 02:14 06/28/19 02:14 06/28/19 02:14 06/28/19 02:14 06/28/19 02:14 Oxygen Delivery Method Room Air Weight: 127 lb 3.307 oz Body Mass Index (BMI) 22.5 Finger Stick Blood Glucose 104 Intake and Output for Last 24 Hours 06/26/19 06/27/19 06/28/19 23:59 23:59 23:59 Intake Total 455 / 455 1620 / 1620 Output Total 400 / 400 400 / 400 Balance 55 / 55 1220 / 1220 Laboratory Tests Past 24 Hrs 06/27/19 06/27/19 06/27/19 14:45 14:45 17:37 WBC 7.3 RBC 4.45 Hgb 13.5 Hct 40.4 MCV 90.8 MCH 30.3 MCHC 33.4 RDW Std Deviation 41.4 RDW Coeff of [place] 12.7 Plt Count 285 MPV 10.7 Immature Gran % (Auto) 0.300 Neut % (Auto) 77.5 H Lymph % (Auto) 13.2 L [place] % (Auto) 7.4 Eos % (Auto) 1.2 Baso % (Auto) 0.4 Absolute Neuts (auto) 5.7 Absolute Lymphs (auto) 0.96 Nucleated RBC % 0 Sodium 137 Potassium 3.7 Chloride 103 Carbon Dioxide 28.0 Anion Gap 6 BUN 7 Creatinine 0.56 Estim Creat Clear Calc 36.12 Est GFR (MDRD) Af Amer 134 Est GFR (MDRD) Non-Af 111 BUN/Creatinine Ratio 12.4 Glucose 91 Lactic Acid Calcium 8.6 Magnesium Total Bilirubin 0.50 AST 4 L ALT 7 L Alkaline Phosphatase 109 Troponin I < 0.015 Total Protein 6.5 Albumin 3.5 Globulin 3.0 Albumin/Globulin Ratio 1.2 TSH Urine Color Yellow Urine Clarity Sl. Cloudy Urine pH 6.5 Ur Specific [place] 1.010 Urine Protein Negative Urine Glucose (UA) Normal Urine Ketones Negative Urine Occult Blood 10 H Urine Nitrite Positive H Urine Bilirubin Negative Urine Urobilinogen Normal Ur Leukocyte Esterase 500 H Urine RBC 0-5 SEEN Urine WBC 25-50 SEEN Ur Squamous Epith Cells 0-5 SEEN Amorphous Sediment 1+ URATE Urine Bacteria 2+ Urine Mucus 0 SEEN 06/27/19 06/27/19 06/28/19 18:25 21:28 07:35 WBC RBC Hgb Hct MCV MCH MCHC RDW Std Deviation RDW Coeff of [place] Plt Count MPV Immature Gran % (Auto) Neut % (Auto) Lymph % (Auto) [place] % (Auto) Eos % (Auto) Baso % (Auto) Absolute Neuts (auto) Absolute Lymphs (auto) Nucleated RBC % Sodium Potassium Chloride Carbon Dioxide Anion Gap BUN Creatinine Estim Creat Clear Calc Est GFR (MDRD) Af Amer Est GFR (MDRD) Non-Af BUN/Creatinine Ratio Glucose Lactic Acid 1.2 Calcium Magnesium 2.1 Total Bilirubin AST ALT Alkaline Phosphatase Troponin I Total Protein Albumin Globulin Albumin/Globulin Ratio TSH 1.29 Urine Color Urine Clarity Urine pH Ur Specific [place] Urine Protein Urine Glucose (UA) Urine Ketones Urine Occult Blood Urine Nitrite Urine Bilirubin Urine Urobilinogen Ur Leukocyte Esterase Urine RBC Urine WBC Ur Squamous Epith Cells Amorphous Sediment Urine Bacteria Urine Mucus Medical Necessity - Tobacco Use Smoking Status: Never smoker Assessment/Plan All Active Problems Acute encephalopathy (Acute) UTI (Acute) Day #2 Rocephin Impressions 1. cystitis - awaiting the results of the urine culture....would not be surprised if it is contaminated because it was a clean catch in a pt with advanced dementia, Parkinson's and psychiatric disorder. Continue Rocephin. Get a repeat UA today and send another culture. 2. acute encephalopathy on chronic dementia. Has had trouble swallowing in the recent past. Will order a ST eval for swallowing. 3. Parkinson's - continue the home medications 4. advanced dementia - PT/OT/ST evaluations 5. hx of a nervous breakdown 25 years ago - continue home psych medications 6. seizure disorder - no seizures in a long time per her granddaughter 7. DVT prophylaxis with SCDs and enoxaparin. check a PB level - has been on Phenobarb since she was a teenager Code Visit Inpatient E&M: 81787 Subs Hosp L2
[2019-06-28 10:18] VITALS: BP 92/63; PULSE 97; RESP 18; TEMP 35.7; O2SAT 95
[2019-06-28] MEDS: Polyethylene Glycol 3350 17 GM PACKET PO (10:27)
[2019-06-28] MEDS: CARBIDOPA/LEVODOPA CR 50/200 Tablet PO ×2 (10:27→21:05)
[2019-06-28] MEDS: Multivitamins,Ther W-Minerals Tablet 1 TABLET PO (10:27)
[2019-06-28] MEDS: Enoxaparin 40 MG/0.4 ML Syringe SC (10:27)
[2019-06-28] MEDS: Aspirin E.C. 81 MG Tablet PO (10:27)
[2019-06-28] MEDS: Phenobarbital 32.4 MG Tablet 64.8 MG PO ×2 (10:27→21:05)
[2019-06-28 11:20] VITALS: O2SAT 95
[2019-06-28 13:25] LABS: Bacteria 0 SEEN /hpf (None Seen); Mucous, Urine 0 SEEN /hpf (<or=2+); Red Blood Cells-Urine 0 SEEN /hpf (0-5)
[2019-06-28 13:27] LABS: Color, Urine Yellow (Yellow); Glucose, Dipstick Normal (Normal); Ketone-Dipstick 5 mg/dl (Negative); Leukocyte Esterase-Dipstick 100 /ul (Negative); Nitrite-Dipstick Negative (Negative); Occult Blood-Urine Negative /ul (Negative); Protein-Dipstick Negative (Negative); Urine Bilirubin Dipstick Negative (Negative); Urine Clarity Sl. Cloudy (Clear); Urine Urobilinogen Normal (Normal)
[2019-06-28 13:40] LABS: Squamous Epithelial Cells - UA 0-5 SEEN /hpf (5-10); White Blood Cells 0-5 SEEN /hpf (0-5)
[2019-06-28 13:50] VITALS: BP 108/78; PULSE 99; RESP 18; TEMP 36.9; O2SAT 97
[2019-06-28 21:00] VITALS: BP 149/86; PULSE 78; RESP 18; TEMP 36.6; O2SAT 98
[2019-06-28] MEDS: Ceftriaxone 1 GM/50 ML BAG IV (21:05)
[2019-06-28] MEDS: 0.9% NaCl Peripheral Flush Adult/Peds IV (21:09)
[2019-06-29 04:00] VITALS: BP 159/88; PULSE 74; RESP 18; TEMP 36.6; O2SAT 97
[2019-06-29 07:12] VITALS: O2SAT 95
--- NOTE | 2019-06-29 07:34 | PN_ITS ---
Patient Problems: Active and Suspected Problems Acute encephalopathy (Acute) UTI (Acute) Subjective: Day #3 Rocephin All events the past 24 hours of been reviewed. Afebrile since admission. Hemodynamically stable Maintaining appropriate oxygenation on room air. P.o. intake on 06/28/2019 was 700 cc and she had an additional 650 overnight. A repeat UA on 06/28/2019 obtained by straight cath showed only 0-5 WBCs per high-power field and was nitrite negative. All culture data was reviewed. The initial clean catch urine is positive for presumptive E. coli and sensitivities are pending. - Physical Exam Vital Signs Temp Pulse Resp BP Pulse Ox 97.8 F 74 18 159/88 H 95 06/29/19 04:00 06/29/19 04:00 06/29/19 04:00 06/29/19 04:00 06/29/19 07:12 Oxygen Delivery Method Room Air Weight: 127 lb 3.307 oz Body Mass Index (BMI) 22.5 Finger Stick Blood Glucose 104 Intake and Output for Last 24 Hours 06/27/19 06/28/19 06/29/19 23:59 23:59 23:59 Intake Total 455 / 455 2270 / 2920 650 / 650 Output Total 400 / 400 400 / 400 Balance 55 / 55 1870 / 2520 650 / 650 Microbiology Past 72 Hours 06/27/19 17:37 Urine Culture - Preliminary Urine, Clean Catch Presumptive E. coli Laboratory Tests Past 24 Hrs 06/28/19 06/28/19 06/28/19 07:35 10:43 13:15 TSH 1.29 Urine Color Yellow Urine Clarity Sl. Cloudy Urine pH 7.0 Ur Specific [place] 1.010 Urine Protein Negative Urine Glucose (UA) Normal Urine Ketones 5 H Urine Occult Blood Negative Urine Nitrite Negative Urine Bilirubin Negative Urine Urobilinogen Normal Ur Leukocyte Esterase 100 H Urine RBC 0 SEEN Urine WBC 0-5 SEEN Ur Squamous Epith Cells 0-5 SEEN Urine Bacteria 0 SEEN Urine Mucus 0 SEEN Phenobarbital 22.9 Medical Necessity - Tobacco Use Smoking Status: Never smoker Assessment/Plan All Active Problems Acute encephalopathy (Acute) UTI (Acute)
[2019-06-29 08:57] VITALS: BP 122/84; PULSE 76; RESP 18; TEMP 36.9; O2SAT 96
[2019-06-29] MEDS: CARBIDOPA/LEVODOPA CR 50/200 Tablet PO (09:24)
[2019-06-29] MEDS: Enoxaparin 40 MG/0.4 ML Syringe SC (09:24)
[2019-06-29] MEDS: Multivitamins,Ther W-Minerals Tablet 1 TABLET PO (09:24)
[2019-06-29] MEDS: Phenobarbital 32.4 MG Tablet 64.8 MG PO (09:24)
[2019-06-29] MEDS: Aspirin E.C. 81 MG Tablet PO (09:24)
[2019-06-29] MEDS: Polyethylene Glycol 3350 17 GM PACKET PO (09:25)
--- NOTE | 2019-06-29 10:19 | DCINST_ITS ---
- Discharge Diagnoses Current Active Problems: Current Active and Chronic Problems Acute encephalopathy (Acute) UTI (Acute) Parkinson's disease (Chronic) Epilepsy (Chronic) Dementia (Chronic) You will use the following diet at home:: No restrictions Your food should be the consistency of: Regular Your liquids should be the consistency of: Regular/Thin Discharge Activity: Return to Normal Activity Call your doctor if you observe: Fever of 101 or Higher, Inability to urinate, Inability to have a bowel movement, Shortness of breath, Dizziness, Fainting spells, Swelling in the ankles, Chest pain, - - Call your PCP if severe diarrhea ( > 5 stools a day), painful sores in the mouth, painful swallowing, rash or itching. Taking a probiotic such as Lactobacillus or Kefir can help with loose stools while taking antibiotics. Instructions: Urinary Tract Infections in Women Pending Tests on Discharge: none Allergies/Adverse Reactions: Allergies propoxyphene HCl [From Darvon] Allergy (Verified 06/27/19 19:42) Unknown Penicillins Adverse Reaction (Verified 06/28/19 07:26) Unknown phenytoin sodium [From Dilantin] Adverse Reaction (Verified 06/27/19 19:42) tremors phenytoin sodium extended [From Dilantin] Adverse Reaction (Verified 06/27/19 19:42) tremors Medications to take at Discharge Phenobarbital 64.8 mg PO BID 06/27/18 Vit A/Vit C/Vit E/Zinc/Copper [Preservision Areds Softgel] 1 cap PO DAILY 06/27/18 Aspirin E.C. [Ecotrin] 81 mg PO DAILY@0800 06/27/19 Carbidopa/Levodopa [Carbidopa-Levo ER 50-200 Tab] 2 tab PO BID 06/27/19 Cholecalciferol (Vitamin D3) [Vitamin D3] 1,000 unit PO DAILY 06/27/19 Perphenazine 16 mg PO QHS 06/27/19 Sertraline HCl [Zoloft] 200 mg PO DAILY@1200 06/28/19 Cefadroxil [Duricef] 500 mg PO BID #8 cap 06/29/19 Lactobacillus Acidophilus [Acidophilus] 1 ea PO BID #20 cap 06/29/19 The following prescriptions were given: Lactobacillus Acidophilus [Acidophilus] 1 ea PO BID #20 cap Transmission Status: Pending to [facility] Cefadroxil [Duricef] 500 mg PO BID #8 cap Transmission Status: Pending to [facility] Primary Care Physician: Emerson Banuelos MD [Primary Care Provider] - Please follow up with your Primary Care Physician in: 5-7 days Test Results: Test results from this visit will be discussed in further detail at your follow- up appointment, if applicable. Proposed Discharge Date: 06/29/19
--- NOTE | 2019-06-29 10:25 | PCM.DC.SUM ---
Discharge Date and Diagnosis - Problem List Patient Problems: Active and Suspected Problems Cystitis (Acute) Acute encephalopathy (Acute) Date of Admission: 06/27/19 Date of Discharge: 06/29/19 - Primary Discharge Diagnosis Active and Suspected Problems Cystitis (Acute) Acute toxic metabolic encephalopathy (Acute) - Secondary Discharge Diagnosis Chronic Problems Dementia (Chronic) Parkinsons disease (Chronic) Epilepsy (Chronic) Hospital Course and Treatment Imaging Results: Laboratory Results - last 24 hr 06/28/19 06/28/19 10:43 13:15 Urine Color Yellow Urine Clarity Sl. Cloudy Urine pH 7.0 Ur Specific [place] 1.010 Urine Protein Negative Urine Glucose (UA) Normal Urine Ketones 5 H Urine Occult Blood Negative Urine Nitrite Negative Urine Bilirubin Negative Urine Urobilinogen Normal Ur Leukocyte Esterase 100 H Urine RBC 0 SEEN Urine WBC 0-5 SEEN Ur Squamous Epith Cells 0-5 SEEN Urine Bacteria 0 SEEN Urine Mucus 0 SEEN Phenobarbital 22.9 Microbiology 06/27/19 17:37 Urine, Clean Catch Urine Culture - Final E. Coli - pansensitive none Operations: None Procedures: None Summary of Care Provided: The patient is a 78-year-old female with Parkinson's disease, epilepsy, hx of a nervous breakdown and dementia who was brought to the emergency room at [facility] on 06/27/2019 with complaint of change in mental status over the preceding week. Per the family she was more confused than normal, disoriented and lethargic for approximately 1 week. She had also been incontinent of stool. She is on multiple psychiatric medications. Vital signs at presentation to the emergency department were temperature 98.1, pulse rate 69, blood pressure 100/66, respiratory rate 17 and she was 97 to 100% saturated on room air. CBC was unremarkable with the exception of an increased neutrophil count of 77.5%. White blood cell count was 7.3. BMP was unremarkable. Lactic acid was normal at 1.2. LFTs were unremarkable and the troponin was less than 0.015. A urine clean-catch was ordered on this demented 78-year-old female with confusion, disorientation on multiple psych meds with PD and incontinence of stool. Clean catch UA showed 25-50 white blood cells per high-power field with 2+ bacteria and nitrite positive. Urine was sent for culture. No blood cultures were sent. She was admitted to the hospital and placed on Rocephin 1 g IV daily. The following day a urine straight cath was done and showed 0-5 WBCs, no bacteria and it was nitrite negative. The clean catch urine grew a pansensitive E. Coli. On 06/29/2019 she was afebrile and hemodynamically stable with a pulse ox ranging from 95 to 97% on room air. She was pleasant and appeared in no distress. she was able to follow simple commands and she was appropriate. She was discharged home on Duricef 500 mg to complete 7 days of TX. she was also give a RX for Lactobacillus and will take this BID for 10 days. She will follow up with Lakisha Wise in 5-7 days. PHYSICAL EXAM: GENERAL: alert, oriented to person only, recognizes that she is not in her home, Cooperative, NAD, able to follow simple commands ORAL: moist mucosa, no mucosal lesions NECK: No JVD, supple, trachea midline LUNGS: CTA, symmetric chest expansion, not tachypneic, no conversational dyspnea, no accessory muscle use HEART: RRR, widely split S1 and normal S2, no rub, no gallop, no murmurs ABDOMEN: soft, NT, ND, BS present, no guarding with palpation EXTREMITIES: no edema, no cyanosis, no calf tenderness SKIN: No rashes, no breakdown NEUROLOGIC: no focal neurologic deficits PSYCH: appropriate, normal affect, pleasant This note was generated with [employer] dictation software. It may contain incorrect words, spelling, and punctuation that were not noted in checking the note before signing. Patient Problems: Active and Suspected Problems Cystitis (Acute) Acute encephalopathy (Acute) - Physical Exam Vital Signs Temp Pulse Resp BP Pulse Ox 98.5 F 76 18 122/84 H 96 06/29/19 08:57 06/29/19 08:57 06/29/19 08:57 06/29/19 08:57 06/29/19 08:57 Oxygen Delivery Method Room Air Weight: 127 lb 3.307 oz Body Mass Index (BMI) 22.5 Finger Stick Blood Glucose 104 Intake and Output for Last 24 Hours 06/27/19 06/28/19 06/29/19 23:59 23:59 23:59 Intake Total 455 / 455 2270 / 2920 650 / 650 Output Total 400 / 400 400 / 400 Balance 55 / 55 1870 / 2520 650 / 650 Microbiology Past 72 Hours 09/13/19 17:37 Urine Culture - Final Urine, Clean Catch Presumptive E. coli Laboratory Tests Past 24 Hrs 06/28/19 06/28/19 10:43 13:15 Urine Color Yellow Urine Clarity Sl. Cloudy Urine pH 7.0 Ur Specific [place] 1.010 Urine Protein Negative Urine Glucose (UA) Normal Urine Ketones 5 H Urine Occult Blood Negative Urine Nitrite Negative Urine Bilirubin Negative Urine Urobilinogen Normal Ur Leukocyte Esterase 100 H Urine RBC 0 SEEN Urine WBC 0-5 SEEN Ur Squamous Epith Cells 0-5 SEEN Urine Bacteria 0 SEEN Urine Mucus 0 SEEN Phenobarbital 22.9 Discharge Activity: Return to Normal Activity Call your doctor if you observe: Fever of 101 or Higher, Inability to urinate, Inability to have a bowel movement, Shortness of breath, Dizziness, Fainting spells, Swelling in the ankles, Chest pain, - - Call your PCP if severe diarrhea ( > 5 stools a day), painful sores in the mouth, painful swallowing, rash or itching. Taking a probiotic such as Lactobacillus or Kefir can help with loose stools while taking antibiotics. Home Medications: Medications to take at Discharge Phenobarbital 64.8 mg PO BID 06/27/18 Vit A/Vit C/Vit E/Zinc/Copper [Preservision Areds Softgel] 1 cap PO DAILY 06/27/18 Aspirin E.C. [Ecotrin] 81 mg PO DAILY@0800 06/27/19 Carbidopa/Levodopa [Carbidopa-Levo ER 50-200 Tab] 2 tab PO BID 06/27/19 Cholecalciferol (Vitamin D3) [Vitamin D3] 1,000 unit PO DAILY 06/27/19 Perphenazine 16 mg PO QHS 06/27/19 Sertraline HCl [Zoloft] 200 mg PO DAILY@1200 06/28/19 Cefadroxil [Duricef] 500 mg PO BID #8 cap 06/29/19 Lactobacillus Acidophilus [Acidophilus] 1 ea PO BID #20 cap 06/29/19 Following Prescrptions Were Given to Patient: Lactobacillus Acidophilus [Acidophilus] 1 ea PO BID #20 cap Transmission Status: Pending to [facility] Cefadroxil [Duricef] 500 mg PO BID #8 cap Transmission Status: Pending to [facility] Primary Care Physician: Emerson Banuelos MD [Primary Care Provider] - Please follow up with your Primary Care Physician in: 5-7 days Patient Instructions: Urinary Tract Infections in Women Disposition: Home Minutes spent on discharge:: 30 Medical Necessity - Tobacco Use Smoking Status: Never smoker Tobacco Use: Non-smoker Meaningful Use Info Meaningful Use Diagnoses (Choose all that apply): None applicable Code Visit Inpatient E&M: 39364 Disch Hosp
== END 2019-06-29 12:17 | disposition home or self-care (01) ==
LOC: ED 15:39 → MS3 20:14
PROVIDERS: Admitting Provider Internal Medicine; Emergency Provider Emergency Medicine; Family Provider Family Medicine; PCP Family Medicine; Referring Provider Internal Medicine; Visit Provider Internal Medicine
DX: N30.00 Acute cystitis without hematuria (principal); G92 Toxic encephalopathy; G20 Parkinson's disease; F02.80 Dementia in other diseases classified elsewhere, unspecified severity, without behavioral disturbance, psychotic disturbance, mood disturbance, and anxiety; G40.909 Epilepsy, unspecified, not intractable, without status epilepticus; Z79.899 Other long term (current) drug therapy; Z79.82 Long term (current) use of aspirin; F20.9 Schizophrenia, unspecified; R13.19 Other dysphagia
CPT/HCPCS: 36415; 80053; 80184; 81001; 83605; 83735; 84443; 84484; 85025; 87086; 87088; 87186; 92507; 92523; 92526; 92610; 93005; 96361; 96365; 96366; 96372; 97163; 97166; 97530; 97535; 99218; 99285; J7030; A4216; G0378